=== PATIENT | female | born 1945 | race Caucasian/White ===

== ENCOUNTER → 2016-09-22 | Day surgery (SDC) | payer MEDICARE, OTHER | END | disposition home or self-care (01) | LOC: FAS 08:30 | DX: Z12.11 Encounter for screening for malignant neoplasm of colon (principal); K21.9 Gastro-esophageal reflux disease without esophagitis; J44.9 Chronic obstructive pulmonary disease, unspecified; G47.30 Sleep apnea, unspecified; M81.0 Age-related osteoporosis without current pathological fracture; F17.210 Nicotine dependence, cigarettes, uncomplicated; Z88.8 Allergy status to other drugs, medicaments and biological substances; Z79.899 Other long term (current) drug therapy; Z85.038 Personal history of other malignant neoplasm of large intestine; Z98.51 Tubal ligation status; Z98.890 Other specified postprocedural states | CPT/HCPCS: J2704 ==

== ENCOUNTER → 2016-10-13 | Day surgery (SDC) | payer MEDICARE, OTHER ==
[2016-10-13 09:46] LABS: HCT 45.3 % (37.0-47.0); HGB 15.5 g/dl (12.5-16.0); MCH 31.8 pg (25.0-31.0); MCHC 34.2 g/dL (32.0-36.0); MPV 10.9 fL (6.0-9.5); RBC 4.87 M/uL (4.20-5.40); RDW 13.7 % (11.5-14.0); WBC 8.7 K/uL (4.0-10.5)
[2016-10-13 10:11] LABS: ALBUMIN 4.2 g/dL (3.4-4.8); BILIRUBIN - TOTAL 0.4 mg/dL (0.1-1.0); CREATININE 0.9 mg/dL (0.5-1.0); GLOBULIN (CALCULATION) 1.9 g/dL (2.2-4.2); POTASSIUM 4.2 mmol/L (3.5-5.1); TOTAL PROTEIN 6.1 g/dL (6.4-8.3)
== END | disposition home or self-care (01) ==
LOC: FAS 08:30
PROVIDERS: Surgery
DX: Z45.2 Encounter for adjustment and management of vascular access device (principal); I87.2 Venous insufficiency (chronic) (peripheral); K21.9 Gastro-esophageal reflux disease without esophagitis; J44.9 Chronic obstructive pulmonary disease, unspecified; F17.210 Nicotine dependence, cigarettes, uncomplicated; G47.30 Sleep apnea, unspecified; M19.90 Unspecified osteoarthritis, unspecified site; M81.0 Age-related osteoporosis without current pathological fracture; Z85.038 Personal history of other malignant neoplasm of large intestine; Z98.51 Tubal ligation status; Z90.49 Acquired absence of other specified parts of digestive tract; Z88.1 Allergy status to other antibiotic agents; Z82.61 Family history of arthritis; Z82.3 Family history of stroke; Z83.3 Family history of diabetes mellitus; Z81.1 Family history of alcohol abuse and dependence; Z79.899 Other long term (current) drug therapy; Z98.890 Other specified postprocedural states
CPT/HCPCS: 36415; 71010; 80053; 93005; J2704

== ENCOUNTER → 2020-10-23 | Day surgery (SDC) | payer MEDICARE, OTHER ==
[~2020-10-23] MED LIST: CARDIZEM CD180 MG PO; DILT-XR120 MG PO; ELIQUIS5 MG PO; FUROSEMIDE 40MG40 MG PO; INCRUSE ELLI62.5 MCG INH; K-DUR20 MEQ PO; LOPRESSOR25 MG PO; MUCINEX 600MG600 MG PO; PREDNISONE 20MG20 MG PO; PROLIA60 MG/1 ML IJ; SYMBICORT 16010.2 GM INH; TRELEGY ELLIPT1 EACH INH; XOPENEX HFA15 GM INH; ZYRTEC10 MG PO
[2020-10-23 07:44] LABS: HCT 48.6 % (37.0-47.0); HGB 16.1 g/dl (12.5-16.0); MCH 31.8 pg (25.0-31.0); MCHC 33.1 g/dL (32.0-36.0); MCV 95.9 fL (78.0-100.0); MPV 9.8 fL (6.0-9.5); RBC 5.07 M/uL (4.20-5.40); RDW 13.2 % (11.5-14.0)
[2020-10-23 07:51] LABS: BUN/CREAT RATIO (CALC) 21.2 RATIO; CREATININE 1.04 mg/dL (0.51-0.95); POTASSIUM 3.7 mmol/L (3.5-5.1)
--- NOTE | 2020-10-23 09:50 | NUR ---
0947 PER VERBAL COMMUNICATION PER Derrick SCHAEFER MD. PATIENT MAY RESTART ELOQUIS 10/24/20.
== END | disposition home or self-care (01) ==
LOC: FAS 06:59
PROVIDERS: Surgery
DX: D12.0 Benign neoplasm of cecum (principal); D12.3 Benign neoplasm of transverse colon; D12.6 Benign neoplasm of colon, unspecified; K21.9 Gastro-esophageal reflux disease without esophagitis; K57.30 Diverticulosis of large intestine without perforation or abscess without bleeding; I27.21 Secondary pulmonary arterial hypertension; I87.2 Venous insufficiency (chronic) (peripheral); I48.91 Unspecified atrial fibrillation; M81.0 Age-related osteoporosis without current pathological fracture; J44.9 Chronic obstructive pulmonary disease, unspecified; G47.33 Obstructive sleep apnea (adult) (pediatric); F17.210 Nicotine dependence, cigarettes, uncomplicated; Z79.01 Long term (current) use of anticoagulants; Z99.89 Dependence on other enabling machines and devices; Z86.010 Personal history of colon polyps; Z98.890 Other specified postprocedural states; Z79.899 Other long term (current) drug therapy; Z20.822 Contact with and (suspected) exposure to COVID-19
CPT/HCPCS: 36415; 80048; 88305; J1610; J2370; J2704; J7120

== ENCOUNTER 2021-05-12 16:52 | Inpatient (IN) | payer MEDICARE, OTHER ==
[~2021-05-12] VITALS: Ht 165.1 cm; Wt 54.3 kg
[2021-05-12 17:14] LABS: BASOPHIL 0.4 % (0-2); EOSINOPHIL 0.1 % (0-7); HCT 28.1 % (37.0-47.0); HGB 8.6 g/dl (12.5-16.0); LYMPHOCYTE 15.8 % (15-48); MCH 28.9 pg (25.0-31.0); MCHC 30.6 g/dL (32.0-36.0); MCV 94.3 fL (78.0-100.0); MONOCYTE 7.6 % (0-12); MPV 10.5 fL (6.0-9.5); NEUTROPHIL 75.7 % (41-80); NRBC 0; PLT 253 K/uL (150-400); RBC 2.98 M/uL (4.20-5.40); RDW 14.6 % (11.5-14.0); WBC 10.9 K/uL (4.0-10.5)
[2021-05-12 17:49] LABS: ALBUMIN 3.2 g/dL (3.4-5.0); BILIRUBIN - TOTAL 0.4 mg/dL (0.2-1.0); BUN/CREAT RATIO (CALC) 57.6 RATIO; CREATININE 0.99 mg/dL (0.51-0.95); TOTAL PROTEIN 6.2 g/dL (6.4-8.2)
[2021-05-12] MEDS ORDERED: LOPRESSOR25 MG PO (23:09)
[2021-05-12] MEDS ORDERED: POTASSIUM CHLO20 ME1 PO (23:10)
[2021-05-12] MEDS ORDERED: VENTOLIN HFA IN18 GM INH (23:11)
[2021-05-13 06:02] LABS: BASOPHIL 0.6 % (0-2); EOSINOPHIL 3.1 % (0-7); HCT 23.4 % (37.0-47.0); HGB 6.9 g/dl (12.5-16.0); LYMPHOCYTE 26.6 % (15-48); MCH 28.8 pg (25.0-31.0); MCHC 29.5 g/dL (32.0-36.0); MCV 97.5 fL (78.0-100.0); MONOCYTE 8.4 % (0-12); MPV 10.4 fL (6.0-9.5); NEUTROPHIL 60.9 % (41-80); NRBC 0; PLT 204 K/uL (150-400); WBC 7.1 K/uL (4.0-10.5)
[2021-05-13 06:24] LABS: ALBUMIN 2.7 g/dL (3.4-5.0); BILIRUBIN - TOTAL 0.2 mg/dL (0.2-1.0); GLOBULIN (CALCULATION) 2.4 g/dL; MAGNESIUM 2.5 mg/dL (1.8-2.4); PHOSPHORUS 4.6 mg/dL (2.6-4.7); POTASSIUM 3.7 mmol/L (3.5-5.1); TOTAL PROTEIN 5.1 g/dL (6.4-8.2)
[2021-05-13 06:33] LABS: CKMB 2.9 ng/mL (0.0-3.6); PRO-BNP 1849 pg/mL (<125)
[2021-05-13 13:25] LABS: BASOPHIL 0.4 % (0-2); EOSINOPHIL 2.7 % (0-7); HGB 6.7 g/dl (12.5-16.0); MCH 29.9 pg (25.0-31.0); MCHC 30.5 g/dL (32.0-36.0); MCV 98.2 fL (78.0-100.0); MONOCYTE 5.8 % (0-12); MPV 10.1 fL (6.0-9.5); NEUTROPHIL 71.4 % (41-80); NRBC 0; PLT 236 K/uL (150-400); RBC 2.24 M/uL (4.20-5.40); RDW 15.1 % (11.5-14.0); WBC 12.2 K/uL (4.0-10.5)
[2021-05-13 13:54] LABS: BUN/CREAT RATIO (CALC) 36.2 RATIO; CREATININE 0.8 mg/dL (0.51-0.95); POTASSIUM 3.9 mmol/L (3.5-5.1)
--- NOTE | 2021-05-13 18:00 | NUR ---
0740 RECEIVED PATIENT FROM MED SURG STATUS POST RAPID RESPONSE. PATIENT COMPLAINED OF SHORTNESS OF AIR AFTER GETTING ON BEDPAN.
--- NOTE | 2021-05-13 18:18 | NUR ---
ENEDE WRONG BLOOD TRANSFUSION. VITAL SIGNS WILL BE UNDER VITAL SIGNS
[2021-05-14 04:25] LABS: BASOPHIL 0.1 % (0-2); EOSINOPHIL 0 % (0-7); HCT 33.9 % (37.0-47.0); LYMPHOCYTE 3.2 % (15-48); MCH 29.2 pg (25.0-31.0); MCHC 31.3 g/dL (32.0-36.0); MONOCYTE 0.6 % (0-12); MPV 10.6 fL (6.0-9.5); NRBC 0; PLT 201 K/uL (150-400); RBC 3.63 M/uL (4.20-5.40); RDW 16.3 % (11.5-14.0); WBC 9.5 K/uL (4.0-10.5)
[2021-05-14 04:30] LABS: HGB 10.6 g/dl (12.5-16.0); MCV 93.4 fL (78.0-100.0); NEUTROPHIL 94.7 % (41-80)
[2021-05-14 04:39] LABS: BUN/CREAT RATIO (CALC) 26.9 RATIO; CREATININE 0.78 mg/dL (0.51-0.95); MAGNESIUM 2.2 mg/dL (1.8-2.4); POTASSIUM 3.9 mmol/L (3.5-5.1)
--- NOTE | 2021-05-14 10:12 | NUR ---
05/14/21 Ms. Leung lives at home. Her 22 y/o granddaughter also lives in the home. Ms. Leung has 02 at 2 L and CPAP (recalled). Her granddaughter cooks and they use [employer]. A metal mixer comes every other week. Ms. Leung drives, however, she is able to walk short distances only due to SOB. Ms. Leung reports to have more difficulty with IADLS. - She was educated to [facility]. - Will continue to follow for discharge planning needs.
--- NOTE | 2021-05-14 11:07 | NUR ---
1040 TO RADIOLOGY FOR GI BLEEDING SCAN ACCOMPANIED BY NURSE
--- NOTE | 2021-05-14 18:50 | NUR ---
AMIODORONE DCD AT 1400
--- NOTE | 2021-05-15 04:21 | NUR ---
0300 PT RESPIRATORY RATE OF 25, PT OXYGEN SATURATION OF 83-86%, EXPIRATORY WHEEZES THROUGH OUT LUNGS, RN INCREASED PT OXGYGEN DELIVERY FROM 4L NC TO 5L NC, OXYGEN SATURATION REMAINED AT 83-86% MUSCULOSKELETAL PHYSICIAN CONSULTED, MUSCULOSKELETAL PHYSICIAN SAID VENTURI MASK, RT CONSULTED AND STATED TO PLACE 50% VENTURI MASK WITH 15L NC, PT OXYGEN STABLIZE TO 98-100%, PT MENTAL STATUS CHANED FROM A/OX4 TO A/OX1, MUSCULOSKELETAL PHYSICIAN CONSULTED, MUSCULOSKELETAL PHYSICIAN ROUNDED ON PATIENT, PERFORMED ASSESMENT AND RN AWAITING ORDERS, PT ALSO PICKING AT LINES AND TUBES NOW-NEW BEHAVIOR. CXR ORDERED FOR NOW
[2021-05-15 04:37] LABS: BASOPHIL 0.1 % (0-2); EOSINOPHIL 0 % (0-7); HCT 34.2 % (37.0-47.0); HGB 10.7 g/dl (12.5-16.0); LYMPHOCYTE 1.6 % (15-48); MCH 30.1 pg (25.0-31.0); MCHC 31.3 g/dL (32.0-36.0); MCV 96.1 fL (78.0-100.0); MONOCYTE 1.7 % (0-12); MPV 10.8 fL (6.0-9.5); NRBC 0; PLT 196 K/uL (150-400); RBC 3.56 M/uL (4.20-5.40)
[2021-05-15 04:40] LABS: WBC 17.1 K/uL (4.0-10.5)
[2021-05-15 04:52] LABS: BUN/CREAT RATIO (CALC) 26.7 RATIO; CREATININE 0.9 mg/dL (0.51-0.95); MAGNESIUM 2.3 mg/dL (1.8-2.4); POTASSIUM 4.8 mmol/L (3.5-5.1)
[2021-05-16 05:46] LABS: BASOPHIL 0.1 % (0-2); EOSINOPHIL 0 % (0-7); HCT 33.5 % (37.0-47.0); HGB 10.1 g/dl (12.5-16.0); LYMPHOCYTE 1.8 % (15-48); MCH 29.3 pg (25.0-31.0); MCHC 30.1 g/dL (32.0-36.0); MCV 97.1 fL (78.0-100.0); MONOCYTE 2.2 % (0-12); MPV 10.5 fL (6.0-9.5); NEUTROPHIL 95.1 % (41-80); NRBC 0; PLT 197 K/uL (150-400); RBC 3.45 M/uL (4.20-5.40); RDW 15.8 % (11.5-14.0); WBC 12.9 K/uL (4.0-10.5)
[2021-05-16 06:09] LABS: BUN/CREAT RATIO (CALC) 34.3 RATIO; CREATININE 0.99 mg/dL (0.51-0.95); POTASSIUM 4.8 mmol/L (3.5-5.1)
[2021-05-16 17:16] LABS: BILIRUBIN NEGATIVE (NEGATIVE); BLOOD 3+ Ery/uL (NEGATIVE); CLARITY CLEAR (CLEAR); COLOR YELLOW (YELLOW); GLUCOSE (U) NORMAL (NORMAL); LEUKOCYTES 1+ Leu/uL (NEGATIVE); NITRITE NEGATIVE (NEGATIVE); PROTEIN NEGATIVE (NEGATIVE); UROBILINOGEN 0.2 mg/dL (0.2-1.0)
[2021-05-16 17:34] LABS: MUCOUS MODERATE; SQUAMOUS EPITHELIAL CELLS RARE
[2021-05-17 05:22] LABS: BASOPHIL 0.1 % (0-2); EOSINOPHIL 0 % (0-7); HCT 35.4 % (37.0-47.0); HGB 10.6 g/dl (12.5-16.0); MCH 29.1 pg (25.0-31.0); MCHC 29.9 g/dL (32.0-36.0); MCV 97.3 fL (78.0-100.0); MONOCYTE 2.2 % (0-12); NRBC 0; PLT 229 K/uL (150-400); RBC 3.64 M/uL (4.20-5.40); RDW 15.4 % (11.5-14.0); WBC 14.9 K/uL (4.0-10.5)
[2021-05-17 05:40] LABS: BUN/CREAT RATIO (CALC) 36.5 RATIO; CREATININE 1.04 mg/dL (0.51-0.95); MAGNESIUM 2.3 mg/dL (1.8-2.4); POTASSIUM 4.6 mmol/L (3.5-5.1)
[2021-05-17 08:27] LABS: LACTIC ACID <0.3 mmol/L (0.4-1.9)
--- NOTE | 2021-05-17 10:34 | NUR ---
05/17/21 Patient was lethargic and unable to answer questions re: her wishes for HH or a rw. Please monitor for needs.
[2021-05-18 05:30] LABS: BASOPHIL 0.1 % (0-2); EOSINOPHIL 0 % (0-7); HCT 31.8 % (37.0-47.0); HGB 9.8 g/dl (12.5-16.0); LYMPHOCYTE 3.1 % (15-48); MCH 29.3 pg (25.0-31.0); MCHC 30.8 g/dL (32.0-36.0); MCV 95.2 fL (78.0-100.0); MPV 10.6 fL (6.0-9.5); NRBC 0; PLT 199 K/uL (150-400); RBC 3.34 M/uL (4.20-5.40); RDW 15.2 % (11.5-14.0); WBC 9.8 K/uL (4.0-10.5)
[2021-05-18 05:37] LABS: POTASSIUM 3.9 mmol/L (3.5-5.1)
[2021-05-18 05:42] LABS: NEUTROPHIL 91.1 % (41-80)
[2021-05-18 19:22] LABS: BASOPHIL 0.2 % (0-2); EOSINOPHIL 0 % (0-7); HCT 36.1 % (37.0-47.0); HGB 11.2 g/dl (12.5-16.0); LYMPHOCYTE 6.7 % (15-48); MCH 29.3 pg (25.0-31.0); MCV 94.5 fL (78.0-100.0); MONOCYTE 6.7 % (0-12); MPV 10.6 fL (6.0-9.5); NRBC 0.9; PLT 109 K/uL (150-400); RBC 3.82 M/uL (4.20-5.40); RDW 15.5 % (11.5-14.0); WBC 12.2 K/uL (4.0-10.5)
[2021-05-18 19:23] LABS: NEUTROPHIL 81.9 % (41-80)
[2021-05-18 19:38] LABS: ALBUMIN 2.9 g/dL (3.4-5.0); BILIRUBIN - TOTAL 1.5 mg/dL (0.2-1.0); BUN/CREAT RATIO (CALC) 40.4 RATIO; CREATININE 1.14 mg/dL (0.51-0.95); GLOBULIN (CALCULATION) 2.5 g/dL; TOTAL PROTEIN 5.4 g/dL (6.4-8.2)
[2021-05-18 19:41] LABS: POTASSIUM 6.2 mmol/L (3.5-5.1)
--- NOTE | 2021-05-18 23:18 | NUR ---
PT. CODED AT 1908. HEART RATE DECREASED FROM LOW 100S TO 30S. RECIEVED ROSC AT 191. DURING THE CODE, PT. RECIEVED 1MG IV EPINEPHRINE AND 1 AMP OF SODIUM BICARB. PATIENT WAS INTUBATED AND BAGGED, VERIFIED BY CHEST X-RAY. TRANSFERED PATIENT FROM TCU5 TO ICU2. PATIENT CODED AGAIN AT 1949. TIME OF WAS PRONOUNCED BY DR. MUNROE AT 1956. DURING THE CODE, PATIENT WAS GIVEN 1MG OF EPINEPHRINE, 2 AMPS OF SODIUM BICARB, AND ANOTHER 1MG OF EPINEPHRINE. PROVIDER CONTACTED FAMILY. FAMILY DECIDED TO NOT HAVE AN AUTOPSY DONE. ETT, NGT, BARRETT, AND RIGHT IJ CVC WAS REMOVED. FAMILY TOOK PATIENT BELONGINGS HOME. CONTACTED OF THE FAMILY'S CHOICE.
--- NOTE | 2021-05-19 07:05 | NUR ---
PT CODED AT 190, HEART RATE DECREASED FROM 104 TO 40'S. CODE WAS CALLED. STAFF RAN CODE, PATIENT [id number] OF EPINEPHRINE AND 1 AMP OF SODIUM BICARB. PATIENT WAS INTUBATED AND BAGGED SUCCESSFULLY. ROSC AT 1914. VERIFIED WITH A CHEST X-RAY AND VIEWED BY . TRANSFERRED PATIENT FROM TCU5 TO ICU2. PATIENT THEN CODED AGAIN AT 1949. PATIENT WAS GIVEN 1MG OF EPI, 2 AMP OF SODIUM BICARB AND ANOTHER 1MG OF EPI. CALLED TIME OF 1956. FAMILY WAS NOTIFIED OF BY ENOC COSTELLO. PER NIGHTSHIFT NURSE FAMILY LATER DECLINED AUTOPSY. NIGHTSHIFT RN REMOVED ETT,NGT,BARRETT AND RIGHT IJ WAS REMOVED. FAMILY REQUEST MAIDEN HOME AND BELONGINGS WERE TAKEN BY FAMILY.
--- NOTE | 2021-05-19 07:48 | NUR ---
05/18 GEODON 5MG WAS ORDERED AND PULLED FROM [facility]. WAS GIVEN TO IMPROVE PATIENT RESTLESSSNES AND AGGITATION. WAS UNABLE TO CHART MEDICATION AND SINCE IT WAS ONE TIME DOSE IT FELL OFF EMAR CHART AND PHARMACY HAD LEFT FOR THE DAY. ONLY PHARMACY COULD PUT THE MED BACK ON EMAR FOR ME TO CHART DOSE GIVEN. CREDIT COMPLIANCE OFFICER TOLD ME TO NOTIFY PHARMACY 10 AM OF INCIDENT. PATIENT CODED AT SHIFT CHANGE 05/18 AND WAS NOT ABLE TO CHART MED IN SYSTEM AT ALL PER PHARMACY. KUMAR IN PHARMACY WERE MADE AWARE OF SITUATION AND WAS TOLD TO MAKE PATIENT NOTE FOR DOCUMENTATION.
== END 2021-05-19 06:01 | disposition expired | DRG 811 ==
LOC: FER 16:52 → FICU 21:02 → FMS 21:02 → FICU 05-13 07:33 → FTCU 05-18 11:25 → FICU 05-18 19:24
PROVIDERS: Allergy & Immunology Allergy; Emergency Medicine; Internal Medicine; Nurse Practitioner; ADMIT Internal Medicine
PROC: 30233N1 Transfusion of Nonautologous Red Blood Cells into Peripheral Vein, Percutaneous Approach (ICD-10-PCS; 2021-05-12)
PROC: 30233N1 Transfusion of Nonautologous Red Blood Cells into Peripheral Vein, Percutaneous Approach (ICD-10-PCS; 2021-05-13)
PROC: B543ZZA Ultrasonography of Right Jugular Veins, Guidance (ICD-10-PCS; 2021-05-13)
PROC: 02HV33Z Insertion of Infusion Device into Superior Vena Cava, Percutaneous Approach (ICD-10-PCS; 2021-05-13)
PROC: 5A12012 Performance of Cardiac Output, Single, Manual (ICD-10-PCS; principal; 2021-05-19)
PROC: 0BH17EZ Insertion of Endotracheal Airway into Trachea, Via Natural or Artificial Opening (ICD-10-PCS; 2021-05-19)
PROC: 5A1935Z Respiratory Ventilation, Less than 24 Consecutive Hours (ICD-10-PCS; 2021-05-19)
DX: D50.9 Iron deficiency anemia, unspecified (principal); J96.21 Acute and chronic respiratory failure with hypoxia; G93.41 Metabolic encephalopathy; F23 Brief psychotic disorder; I48.20 Chronic atrial fibrillation, unspecified; J44.1 Chronic obstructive pulmonary disease with (acute) exacerbation; I46.9 Cardiac arrest, cause unspecified; Z20.822 Contact with and (suspected) exposure to COVID-19; I11.0 Hypertensive heart disease with heart failure; E87.6 Hypokalemia; M81.0 Age-related osteoporosis without current pathological fracture; G47.33 Obstructive sleep apnea (adult) (pediatric); N18.2 Chronic kidney disease, stage 2 (mild); F17.210 Nicotine dependence, cigarettes, uncomplicated; Z90.49 Acquired absence of other specified parts of digestive tract; Z85.038 Personal history of other malignant neoplasm of large intestine; Z79.01 Long term (current) use of anticoagulants; Z79.899 Other long term (current) drug therapy; Z98.51 Tubal ligation status
CPT/HCPCS: 31500; 36415; 36430; 36600; 70450; 71045; 71250; 71275; 78278; 80048; 80053; 80061; 80162; 81001; 82553; 82803; 83605; 83735; 83880; 84100; 84484; 85025; 85379; 86850; 86900; 86901; 86922; 87076; 87088; 87186; 92950; 93005; 94010; 94640; 94667; 94668; 94762; 97162; 97166; 97530-GP; 97535; A4641; A9560; C9113; G0378; J0171; J0282; J0456; J0610; J1160; J1885; J2060; J2270; J2354; J2920; J2930; J3475; J3480; J3486; J7030; J7050; J7060; J7120; P9016; Q9967; U0002